=== PATIENT | female | born 1980 | race Caucasian/White ===

== ENCOUNTER 2020-08-01 00:01 | Emergency (ER) | payer MEDICAID ==
[~2020-08-01] VITALS: Ht 172.7 cm; Wt 90.9 kg
[2020-08-01 00:05] VITALS: BP 132/89
--- NOTE | 2020-08-01 00:18 | NUR ---
EKG DONE IN TRIAGE. 

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
--- NOTE | 2020-08-01 01:25 | NUR ---
ERP AT BEDSIDE
--- NOTE | 2020-08-01 01:33 | NUR ---
Patient given discharge instructions and they have confirmed that they understand the instructions. Patient ambulatory with steady gait.
== END 2020-08-01 01:36 | disposition home or self-care (01) ==
LOC: ED 01:15
DX: R07.1 Chest pain on breathing (principal); M94.0 Chondrocostal junction syndrome [Tietze]; R05 Cough; R07.89 Other chest pain
CPT/HCPCS: 93005; 99283